=== PATIENT | female | born 1960 | race Caucasian/White ===

== ENCOUNTER 2023-02-19 09:43 | Outpatient (CLI) | payer BC, SELFPAY ==
[2023-02-19 13:51] LABS: Basophils Percent Auto 0.5 % (0.2-1.2); Eosinophils Absolute Auto 0.2 K/mm3 (0-0.3); Eosinophils Percent Auto 3.4 % (0-4.4); Hematocrit 45.9 % (37.0-47.0); Hemoglobin 14.5 g/dL (12.0-15.0); Immature Granulocyte Absolute 0.01 K/mm3 (0.00-0.031); Immature Granulocyte Percent A 0.2 % (0-0.5); Immature Platelet Fraction Pct 14.7 % (0.9-11.2); Lymphocytes Absolute Auto 1.84 K/mm3 (0.9-3.2); Lymphocytes Percent Auto 28.1 % (18.3-44.2); Mean Corpuscular HGB Conc 31.6 g/dl (32-36); Mean Corpuscular Hemoglobin 28.1 pg (26-34); Mean Platelet Volume 13.4 fl (7.4-10.4); Monocytes Absolute Auto 0.3 K/mm3 (0.1-0.6); Monocytes Percent Auto 5.2 % (2.6-8.5); Neutrophils Absolute Auto 4.1 K/mm3 (1.3-6.7); Neutrophils Percent Auto 62.6 % (45.5-73.1); Platelet Count Result 158 k/mm3 (150-375); Red Blood Count 5.16 M/mm3 (4.2-5.4); Red Cell Distribution Width 13.5 % (11.5-14.5); White Blood Count 6.6 K/mm3 (4.5-10.0)
[2023-02-19 13:54] LABS: Alanine Aminotransferase 27 U/L (6-35); Albumin Level 4.3 g/dL (3.5-5.1); Alkaline Phosphatase 79 U/L (38-126); Anion Gap 5 mmol/L (8-16); Aspartate Amino Transferase 51 U/L (14-36); Bilirubin,Total 0.5 mg/dL (0.2-1.3); Blood Urea Nitrogen 19 mg/dL (7-17); Calcium 8.7 mg/dL (8.4-10.2); Carbon Dioxide 31 mmol/L (22-30); Chloride 105 mmol/L (98-107); Cholesterol 273 mg/dL (0-200); Estimated Glomerular Filt Rate > 60; Glucose 92 mg/dL (65-110); HDL Direct 45 mg/dL; Potassium 4.4 mmol/L (3.4-5.0); Sodium 141 mmol/L (137-145); Triglycerides 141 mg/dL (<150)
[2023-02-19 14:06] LABS: LDL Cholesterol Direct 185 mg/dL
[2023-02-19 14:16] LABS: Vitamin D 25 Hydroxy 16.3 ng/mL
== END 2023-02-19 09:44 | disposition home or self-care (01) ==
LOC: ANHGOSHLAB 09:44
PROVIDERS: PCP Internal Medicine; Visit Provider Nurse Practitioner
DX: E55.9 Vitamin D deficiency, unspecified (principal); Z13.29 Encounter for screening for other suspected endocrine disorder; Z13.220 Encounter for screening for lipoid disorders
CPT/HCPCS: 36415; 80053; 80061; 82306; 85025; 85055

== ENCOUNTER → 2023-02-23 08:00 | Outpatient (CLI) | payer BC, SELFPAY ==
--- NOTE | ~2023-02-23 | CT_ITS ---
EXAMINATION: CT lung screening DATE: 02/23/2023 08:19 INDICATION: F17.200 - Nicotine dependence, unspecified, uncomplicated TECHNIQUE: Computed tomography (CT) of the chest was performed without intravenous contrast. Addition al 3D reconstructions utilizing coronal maximum intensity projection (MIP) were performed. Automated exposure control and iterative reconstruction technique were employed. The dose-length product was 10 2.73 mGy-cm. COMPARISON: None FINDINGS: Mild right apical pleural-parenchymal scarring. Mild scattered emphysema. Minimal basilar atelectasis and the right middle lobe. No suspicious pulmonary nodules, pneumonia, pulmonary edema or pleural ef fusion. Heart size is normal. No pericardial effusion. Thoracic aorta is normal in caliber. No pathol ogically enlarged thoracic lymphadenopathy. And mild to moderate thoracic and and severe lower cervic al spondylosis. IMPRESSION: 1. Lung-RADS category 1: Negative. Continue annual screening with noncontrast low-dose chest CT in 12 months. Reviewed, dictated and finalized at location B. IMPRESSION: 1. Lung-RADS category 1: Negative. Continue annual screening with noncontrast l ow-dose chest CT in 12 months.
== END ==
PROVIDERS: PCP Nurse Practitioner; Visit Provider Nurse Practitioner
DX: Z12.2 Encounter for screening for malignant neoplasm of respiratory organs (principal); F17.210 Nicotine dependence, cigarettes, uncomplicated; R91.8 Other nonspecific abnormal finding of lung field
CPT/HCPCS: 71271

== ENCOUNTER 2025-09-01 10:42 | Emergency (ER) | payer SELFPAY ==
--- OUTSIDE RECORDS SUMMARY | 2008-07-01 09:49 | XMS_ITS | Continuity of Care Document ---
Author Organization [facility] Address [address] [place] [address] [place] [address] Phone Care Team Providers Care Slot Floorperson Name Role Phone Chacon OD, Brigido Unavailable Unavailable Procedures Procedure Date Eye Exam, New Patient Refraction Advance Directives Directive Yes / No Effective Date File Name No Information Encounters Encounter Description Practice Location Reason(s) For Visit Diagnoses Date Provider Providers Copied on Encounter [facility], [address] [place] [address] [address], [place], [place], [id number], [place] tel:[phone] [facility] No Information 0-200 8 Chacon OD Brigido. [address] , [address], [place], [address], [place]. tel:[phone] Family History Family Member Type Diagnosis Age At Onset No Information Payers Payer name Insurance type Covered constitution party ID Authoriza tion(s) [place] [id number] Social History Type Description Quantity Date Captured Comments Sex Female Smoking Status No Information Chief Complaint And Reason For Visit No Information Reason For Referral Reason For Referral No Information History Of Present Illness Encounter Date Complaint History Of Prese nt Illness No Information Functional Status Date Functional Assessmen t No Information Instructions Date Instruction Additional Infor mation No Information Assessments Type Assessment Date No Information Patient Care Teams Name Effective Dates (start - stop) Status Members No Information
--- OUTSIDE RECORDS SUMMARY | 2008-07-01 09:49 | XMS_ITS | Continuity of Care Document ---
Author Organization [facility] Address [address] [place] [address] [place] [address] Phone Care Team Providers Care Customs Entry Writer Name Role Phone Chacon OD, Brigido Unavailable Unavailable Procedures Procedure Date Eye Exam, New Patient Refraction Advance Directives Directive Yes / No Effective Date File Name No Information Encounters Encounter Description Practice Location Reason(s) For Visit Diagnoses Date Provider Providers Copied on Encounter [facility], [address] [place] [address] [address], [place], [place], [id number], [place] tel:[phone] [facility] No Information 0-200 8 Chacon OD Brigido. [address] , [address], [place], [address], [place]. tel:[phone] Family History Family Member Type Diagnosis Age At Onset No Information Payers Payer name Insurance type Covered democrat ID Authoriza tion(s) [place] [id number] Social History Type Description Quantity Date Captured [...]
--- NOTE | ~2025-09-01 | CT_ITS ---
EXAMINATION: CT brain wo manuel, 09/01/2025 12:45 ONCOLOGY SOCIAL WORK HISTORY: dizziness COMPARISON: No comparisons available. Technique: Axial images obtained of the brain without contrast. One or more of the following dose reduction techniques were used: automated exposure control, adjustment of the mA and/or kV according to patient size, use of iterative reconstruction technique. Findings: No acute infarct or parenchymal hemorrhage. No abnormal mass or mass effect. No midline shift. No extra-axial fluid collections. No hydrocephalus. Mastoid air cells unremarkable. Sinuses and orbits unremarkable. No acute fracture. No significant facial or scalp soft tissue swelling evident. No radiopaque foreign body is seen. Impression: 1.No acute intracranial abnormality. Reviewed, dictated and finalized at location [facility]. [facility] WORK Impression: 1.No acute intracranial abnormality.
[2025-09-01 10:49] VITALS: BP 186/78; PULSE 71; RESP 17; TEMP 36.6; O2SAT 99
--- NOTE | 2025-09-01 11:14 | PC.NURSE ---
Pt states her sx have started to resolve. Reports feeling less dizziness and nauseous. Pt assisted to bathroom via w/c, able to ambulate with steady gait without assistance.
--- OUTSIDE RECORDS SUMMARY | 2025-09-01 11:16 | XMS_ITS | Clinical Summary ---
Author Organization [facility] Address [address] [place] [address] Care Team Providers Care Cake Stripper Name Role Phone Pato Godoy MD Primary Care Provider + Unknown, Provider Unavailable Unavailable Source Comments [facility],non-owned Affiliates and Associated Physician Practices is amultiple site organization consisting of ambulatory clinics and hospital sitesin [place], [place], [place] and [place]. This disclosure is being madepursuant to the Care Everywhere program and may not contain all information available regarding this patient. Last updated 18.[facility] Allergies No known active allergies Medications * Be aware that medications may not be up to date on this document. Alwaysverify current medications with the patient. No known medications Active Problems Patient Care Coordination No te Formatting of this note migh t be different from the original. Primary Care Provider: Pato Godoy MD [address] [address] No known active problems Social History Tobacco Use Types Packs/Day Years Used Date Smoking Tobacco: Every Day Cigarettes 0.3 47 Smokeless Tobacco: Never Alcohol Use Standard Drinks/Week Comments Yes 0 (1 standard drink = 0.6 oz pur e alcohol) occ Comments No Sex and Gender Information Value Date Recorded Sex Assigned at Not on file Legal Sex Female 5:53 PM [employer]ODUCTION [employer]OL [employer] Gender Identity Not on file Sexual Orientation Not on file Last Filed Vital Signs Vital Sign Reading Time Taken Comments Blood Pressure 144/50 11/08/2023 9:30 AM [employer]ODUCTION [employer]NER Pulse 66 11/08/2023 9:30 AM [employer]ODUCTION [employer]NER Temperature 36.7 C (98 F) 11/08/2023 9:30 AM [employer]NER Respiratory Rate 19 03/27/2019 11:46 AM CDT Oxygen Saturation 99% 09/29/2022 11:13 AM [employer] Inhaled Oxygen Concentration - - Weight 71.7 kg (158 lb) 11/08/2023 9:30 AM [employer] Height 162.6 cm (5' 4) 11/08/2023 9:30 AM [employer] Body Mass Index 27.12 11/08/2023 9:30 AM [employer] Plan of Treatment Health Maintenance Due Date Last Done Comments COLOGUARD (AGES 45-75) - COLON CA SCREENING 1961 COLON MONITORING 1961 COLONOSCOPY - COLON CA SCREENING 1961 CT COLONOGRAPHY - COLON CA SCREENING 1961 Colorectal Cancer Screening 1961 FIT - COLON CA SCREENING 1961 FLEX SIG - COLON CA SCREENING 1961 LIPID TESTING 1961 HIV SCREENING 1976 HEPATITIS C SCREENING 11/21/1979 DTAP/TDAP/TD VACCINES (1 - Tdap) 1980 PNEUMOCOCCAL VACCINE 50+ (1 of 2 - PCV) 1980 PAP SMEAR 1982 ZOSTER VACCINE (1 of 2) 2011 SCREENING FOR DIABETES 11/08/2023 03/27/2019 DEPRESSION SCREENING 10/22/2024 COVID-19 VACCINE ( - season) 2025 INFLUENZA VACCINE (#1) 2025 MAMMOGRAM 11/08/2025 11/08/2023, 12/0 06/2022, 09/23/2021, Additional history exists Respiratory Syncytial Virus (RSV) Vaccine Pt: or over 60 yrs (1 - 1-dose 75+ series) 2036 HEPATITIS B VACCINE Aged Out No longe r eligible based on patient's age to complete this topic HIB VACCINE Aged Out No longer eligi ble based on patient's age to complete this topic HPV VACCINE Aged Out No longer eligi ble based on patient's age to complete this topic MENINGOCOCCAL (Group B) VACCINE SHARED DECISION-MAKING Aged Out No longer eligible based on patient's age to complete this topic MENINGOCOCCAL GROUPS A/C/Y/W VACCINE Aged Out No longer eligible based on patient's age to complete this topic Procedures Procedure Name Priority Date/Time Associated Diagnosis Comments MAMMO BILAT SCREENING W SUNDEEP Routine 11/08/2023 8:53 AM [employer]ODUCTION CONTROL PLANNER Encounter for mammogram to establish baseline mammogram COMPREHENSIVE METABOLIC PANEL STAT 03/27/2019 11:10 AM CDT from Last 3 Months or Most Recently Relevant to Health Maintenance Results * MAMMO BILAT SCREENING W SUNDEEP (11/08/2023 8:53 AM PRODUCTION CONTROL PLANNER) Anatomical Region Laterality Modality Breast Bilateral Mammography 11/08/2023 11:1 6 AM [employer]ODUCTION [employer]OL PL[employer]NER Impressions 11/08/2023 11:17 AM [employer]ODUCTION CONTROL PL[employer]NER : There is no mammographic evidence of malignancy. OVERALL FINAL ASSESSMENT: BI-RADS Category 1: Negative. Annual screening mammography is recommended. > Interpreting Provider: Laura Gavin MD on 11/08/2023 11:17 AM Narrative 11/08/2023 11:17 AM [employer]ODUCTION CONTROL PLANNER EXAMINATION: BILATERAL DIGITAL SCREENING MAMMOGRAM AND BILATERAL BREAST TOMOSYNTHESIS HISTORY: Screening. COMPARISON: Serial examinations dating back to 2017. TECHNIQUE: BILATERAL digital breast tomosynthesis (DBT) and synthetic 2D digital mammogram images were obtained (bilateral craniocaudal and mediolateral oblique projections) including computer aided detection (CAD.) BREAST PARENCHYMAL COMPOSITION:Category C: The breasts are heterogeneously dense which may obscure small masses. MAMMOGRAM FINDINGS: There are no new suspicious masses, calcifications, or areas of architectural distortion in either breast, and there has been no significant interval change. us Suzie Acevedo MD MAMMO ORDERABLES Final Result * (ABNORMAL) COMPREHENSIVE METABOLIC PANEL (03/27/2019 11:10 AM CDT) Glucose 91 74 - 106 mg/dL 03/27/2019 11:34 AM CDT [facility] Sodium 142 136 - 145 mmol/L 03/27/2019 11:34 AM CDT [facility] Potassium 3.5 3.5 - 5.1 mmol/L 03/27/2019 11:34 AM CDT [facility] Chloride 110(H) 98 - 107 mmol/L 03/27/2019 11:34 AM CDT [facility] CO2 24 23 - 31 mmol/L 03/27/2019 11:34 AM CDT [facility] Calcium 7.9(L) 8.4 - 10.2 mg/dL 03/27/2019 11:34 AM CDT [facility] Anion Gap 8 8 - 16 mmol/L 03/27/2019 11:34 AM CDT [facility] BUN 13 9.8 - 20.1 mg/dL 03/27/2019 11:34 AM CDT [facility] Creatinine 0.56 0.55 - 1.02 mg/dL 03/27/2019 11:34 AM CDT [facility] Alkaline Phosphatase 78 40 - 150 U/L 03/27/2019 11:34 AM CDT [facility] ALT 19 13 - 61 U/L 03/27/2019 11:34 AM CDT [facility] AST 29 5 - 34 U/L 03/27/2019 11:34 AM CDT [facility] Protein Total 6.6 6.4 - 8.3 gm/dL 03/27/2019 11:34 AM CDT [facility] Albumin 3.7 3.5 - 5.2 gm/dL 03/27/2019 11:34 AM CDT [facility] Bilirubin Total 0.2 0.2 - 1.0 mg/dL 03/27/2019 11:34 AM CDT [facility] eGFR by MDRD >60 >60 mL/min/1.7 3m2 03/27/2019 11:34 AM CDT [facility] eGFR by MDRD >60 >60 mL/min/1.7 3m2 03/27/2019 11:34 AM CDT [facility] Blood BLOOD SPECIMEN / Unknown Venipuncture / Unknown 03/27/2019 11:10 AM CDT 03/27/2019 11:15 AM CDT Narrative [facility] - 03/27/2019 11:34 AM CDT Attention clinician: BUN Reference Range has changed. us Dylan Davila DO LAB - CHEMISTRY ORDERABLES F inal Result [facility] [address] [place] [address] from Last 3 Months or Most Recently Relevant to Health Maintenance Insurance SELF PAY NO INSURANCE Member Subscriber Plan / Payer (Ef fective for All Dates) Name:Rosanne Priyanka Member ID:Not on file Relation to Subscriber:Self Name:Rosanne Priyanka Subscriber ID:Not on file Payer ID:Not on file Group ID:Not on file Type:Self Pay Address: [place], [place] Care Teams Cake Stripper Relationship Specialty Start Date End Date Pato Godoy MD [address] [place] [address] PCP - General Family Medicine 11/19/17 Unknown, Provider [address] [address] 11/19/17
--- OUTSIDE RECORDS SUMMARY | 2025-09-01 11:16 | XMS_ITS | Clinical Summary ---
Author Organization [facility] young [place] Address [address] [place] [address] Phone Care Team Providers Care Senior National Account Manager Name Role Phone Pato Godoy MD Primary Care Provider +1- [phone] Allergies No known active allergies Medications multivitamin (DAILY-ASHLY) Oral tablet Take 1 Tab by mouth daily. Active omeprazole (PriLOSEC) 20 mg Capsule, Delayed Release(E.C.) Take 20 mg by mouth daily. Active letrozole (FEMARA) 2.5 mg Tablet Take 1 Tablet (2.5 mg) by mouth daily. 90 Tablet 3 10/23/2017 Active indomethacin (INDOCIN) 50 mg capsule Take 50 mg by mouth 3 times daily. Active omega-3 fatty acids-fish oil 300-1,000 mg Capsule Take by mouth daily. Active cyanocobalamin 1,000 mcg Tablet Take 1,000 mcg by mouth daily. Active Active Problems Patient Care Coordination No te Formatting of this note migh t be different from the original. Primary Care: Pato Godoy MD Referring Provider: Geni Segura MD [address] [facility] [address] [place] [address] Other: Dr Suzie Acevedo Problem Noted Date Diagnosed Date Osteopenia of multiple sites 07/18/2017 Breast cancer 11/22/2016 Overview (03/12/2017): BREAST CANCER TREATMENT SUMMARY AND SURVIVORSHIP PLAN Patient name: Priyanka Lay Patient Patient : 1960 CARE TEAM Medical oncologist: Dr Charmaine Madden Surgeon: Dr Suzie Acevedo Radiation oncologist[facility] Primary care physician: Dr Pato Kamara DISPATCHER SERVICE OR WORK: Dr Geni Segura TREATMENT SUMMARY Diagnosis date: 11/17/2016 Cancer type/location/histology subtype: 11/13/16: A screening mammogram showed a new spiculated mass is seen in the posterior lower inner right breast. Also, a mass was suggested in the posterior upper, slightly inner left breast. 11/15/16: A bilateral diagnostic mammogram and ultrasound (US) were performed revealing a simple appearing cyst within the left breast at the 10:00 position and no other concerning abnormalities to note. The right breast imaging revealed an irregular hypoechoic mass with angulated margins at the 3:00 position measuring 6 mm x 5 mm x 6 mm. 11/17/16: An US guided biopsy was performed on the right breast revealing an invasive ductal carcinoma (IDC) with a [place] Score of 5 (low grade) ER: positive CO: positive [id number]: negative Ki-67: 16.3% low grade cancers tend to be less aggressive than high grade cancers 11/28/16: A breast MRI showed no additional abnormalities Surgery: [x] Yes [] No Surgery date: 12/07/2016 Surgical procedures/location/findings: A right breast needle localized lumpectomy was performed by Dr Suzie Acevedo revealing: - Invasive ductal carcinoma with the following characteristics: 1. Size: 0.7 x 0.5 x 0.5 cm. 2. [place] score: 5, low-grade. 3. Lymphovascular invasion: Not identified. 4. Surgical margins: Negative for tumor. Lymph nodes removed: [x] Yes [] No - 2 lymph nodes with no evidence of metastatic carcinoma (0/2). TNM FINAL STAGING: [id number] T1 (includes T1a, T1b, and T1c): Tumor is 2 cm (3/4 of an inch) or less across. Breast cancer is staged using the [place] Joint Committee on Cancer (AJCC) TNM system, which is based on: 1) The size of the breast tumor (T) and if it has grown into nearby areas 2) Whether the cancer has reached nearby lymph nodes (N) 3) Whether the cancer has metastasized (spread to other parts of the body) (M) Oncotype results if performed: Yes [x] No[] Oncotype Score = 19 The cancer has a low risk of recurrence. The benefit of chemotherapy is likely to be small and will not outweigh the risks of side effects. The Oncotype DX test is both a prognostic test, since it provides more information about how likely (or unlikely) the breast cancer is to come back, and a predictive test, since it predicts the likelihood of benefit from chemotherapy or radiation therapy treatment. Studies have shown that Oncotype DX is useful for both purposes. Radiation: [x] Yes [] No Body area treated: whole right breast radiation between 01/08/2017 and 02/22/2017. Need for ongoing (adjuvant) treatment for cancer: Yes [x] No[] Additional treatment name: 2.5mg Letrozole (Femera)- take one tablet by mouth daily Plan duration: 5 years Possible side effects with Letrozole (Femera): Arthralgias [x] Hot flashes/night sweats [x] Increased bone loss [x] vaginal dryness [x] slight increased risk of DVT/Blood clot [] Slight increased risk of uterine cancer [] increased cholesterol [x] Bone health- Vitamin D 1000 units a day, calcium rich diet (milk, cheese, yogurt, leafy greens), if lactose intolerant, recommend Calcium 600mg daily, weight bearing exercises such as walking or aerobics encouraged. Bone density exams every two years. Magnesium for hot flashes- 500mg twice a day, reduce caffeine intake, exercise regularly, cotton clothing and bed linens, sleep with fan in room Vaginal dryness- can try over the counter products such as [place] or Replens. Daily application of coconut oil or olive oil. Try and avoid estrogen based vaginal creams such as Estrace. For lack of libido- physical exercise recommended. Can refer to [facility] program for counseling and possible acupuncture or [facility] for Pete Rizo Touch laser treatment SCHEDULE OF CLINIC VISITS, CANCER SURVEILLANCE, AND OTHER RECOMMENDED RELATED TESTS MEDICAL ONCOLOGIST -Every 3-4 mos for the first 3 years -Every 6-12 mos years 4 and 5 -Then yearly. *Physical exam/lab work every 3-6 months the first 3 years and then every 6 months year 4/5 and then yearly. Mammogram yearly. A baseline bone density study should be performed on all postmenopausal women prior to starting Arimidex/Femara/or Aromasin. It should be repeated every 1-to 2 years as directed by your physician. Other testing as indicated. RADIATION ONCOLOGIST -4-6 weeks after treatment -Every 3-6 mos for the first 3 years -Every 6-12 mos for year 4 and 5. *Physical exam and other tests as indicated on each visit SURGEON -Every 6 mos for the first year and then yearly PRIMARY CARE PHYSICIAN -Continue your yearly visit *Physical exam and other tests as indicated on each visit CT SCAN TECHNOLOGIST -Continue your yearly visit. *Physical exam and other tests (Pap test) as indicated on each visit. Possible late and/or prison affects that someone with this type of cancer and treatment may experience: [] Neuropathy [x] Lymphedema [x] Fatigue [x] Osteoporosis [x] Menopausal symptoms [] Lung disease [x] Breast pain [x] Sexual dysfunction [] Heart disease [] Leukemia Cancer survivors may experience issues with the areas listed below. If you have any concerns in these or other areas please speak with your doctors or nurses to find out how you can get help with them. [] Emotional and mental health [] Physical functioning [] Memory or concentration loss [] Fatigue [] Insurance issues [] Parenting [] Spiritual issues [] Weight changes [] School/work [] Fertility [] Stopping smoking [] Financial advice or assistance [] Sexual functioning [] Other A number of lifestyle/behaviors can affect one's ongoing health, including the risk for the cancer coming back or developing another cancer. Discuss these recommendations with your doctor and nurses. [] Tobacco use/cessation [] Alcohol use [] Weight management (loss/gain) [] Diet [] Calcium and vitamin D [] Regular daily weight bearing exercise [] Sunscreen use [] Vaccines [] Lung cancer screening [] Routine dental care [] Breast cancer screening [] Breast self exam [] Well woman exam [] Colonoscopy [] Monitoring of blood pressure, cholesterol, and blood glucose CALL YOUR DOCTOR RECOMMENDATIONS Call for any breast changes, new lumps or areas of concern, swelling to arm where lymph nodes were removed, new pain that persists despite OTC medications, or any problems with your endocrine therapy. PLAN Lifestyle modifications could have a modest impact on risk reduction as well. Recommend a healthy diet including low fat, high fiber foods, low sodium and low cholesterol foods. Mediterranean diet and anti-inflammatory diet recommended and info provided. Recommend an exercise regimen of approximately 5-6 days a week and maintaining healthy weight. Goal is to achieve 150 minutes of exercise per week. We spent time discussing that those changes could result in weight loss which is preventive and also good for overall health ADDITIONAL RESOURCES Patients may have many questions and concerns after their cancer treatment ends. A list of local resources as provided below to assist you. [facility] [employer] [place]: [place] Cancer Society (ACS): www.acs.org National Cancer [place] (NCI): www.cancer.gov [place] Society of clinical oncology (ASCO): www.cancer.net Komen: www.komen.org Livestrong: [employer] Radiation therapy: www.rtanswers.org Patient signature: Priyanka Lay MNeymar/SCOOTER/RN signature: Cherie Eldridge RN BSN Date delivered on: 03/12/2017 Resolved Problems Problem Noted Date Diagnosed Date Resolved Date Abnormal mammogram of both breasts 11/14/2016 11/22/2016 Visit for screening mammogram 11/13/2016 12/18/2016 Diffuse cystic mastopathy 02/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 ADH 10/19/2009 07/18/2017 Overview (02/12/2012): 09/14/09 RIGHT bxs - cousin by marriage of Kartik Lay 09/30/09 RIGHT bxs Assessment & Plan (01/10/2010 1:32 PM CDT): IOV First mammogram was abnormal; atypia Irish 1.9% and 16.7% KAREN Discussed TMX JanuaryO Wants to lose weight first ROV 1 year Family History Medical History Relation Name Comments Healthy Brother Heart Disease Father at 70yr o f [place] Healthy Mother alive age 72y Healthy Sister x 2 Relation Name Status Comments Brother Father Mother Sister x 2 Social History Tobacco Use Types Packs/Day Years Used Date Smoking Tobacco: Former Cigarettes 0.3 30 0 10/22/1986 - 10/22/2016 Smokeless Tobacco: Never Tobacco Cessation:Counseling Given: No Alcohol Use Standard Drinks/Week Comments Yes 0 (1 standard drink = 0.6 oz pur e alcohol) moderate Comments No Sex and Gender Information Value Date Recorded Sex Assigned at Not on file Legal Sex Female 5:48 AM PROJECT ESTIMATOR Gender Identity Not on file Sexual Orientation Not on file 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 Not on file Not on file Not on file Last Filed Vital Signs Vital Sign Reading Time Taken Comments Blood Pressure 132/60 09/15/2019 2:00 PM PROJECT ESTIMATOR Pulse 86 10/30/2017 6:00 PM PROJECT ESTIMATOR Temperature 36.6 C (97.9 F) 10/30/2017 2:57 PM PROJECT ESTIMATOR Respiratory Rate 16 10/30/2017 5:08 PM PROJECT ESTIMATOR Oxygen Saturation 98% 10/30/2017 6:00 PM PROJECT ESTIMATOR Inhaled Oxygen Concentration - - Weight 73.3 kg (161 lb 9.6 oz) 09/15/2019 2:00 P M PROJECT ESTIMATOR Height 162.6 cm (5' 4) 09/15/2019 2:00 PM PROJECT ESTIMATOR Body Mass Index 27.74 09/15/2019 2:00 PM PROJECT ESTIMATOR Plan of Treatment Health Maintenance Due Date Last Done Comments DTAP/TDAP/TD VACCINES (1 - Tdap) 1980 COLORECTAL SCREENING 2006 Colorectal Cancer Screening 2006 FIT-DNA Q 3 years 2006 FIT/FOBT Q 1 year 2006 Flex Sig/CT Colonography Q 5 years 2006 ZOSTER VACCINE (1 of 2) 2011 BREAST CANCER SCREENING 09/14/2021 09/14/20 20, 09/15/2019, 09/09/2018, Additional history exists INFLUENZA VACCINE (#1) 2025 RSV VACCINE (60+ or ) (1 - 1-dose 75+ series) 2036 Medical Devices Implanted Type Area Juice Scaleman Device Identifier Shelf Expiration Date Model / Serial / Lot Hemostatic Surgicel 4x8in 1950 - [id number] Implanted:Qty: 1 on 12/07/2016 by Suzie Acevedo MD at [facility] Hemostatic Right: Axilla [employer]- [employer] 04/20/[birth year]211950 [id number] Hemostatic Surgicel 4x8in 1950 - [id number] Implanted:Qty: 1 on 12/07/2016 by Suzie Acevedo MD at [facility] [place] Hemostatic Right: Breast [employer] 04/20/[birth year]211950 [id number] Procedures Procedure Name Priority Date/Time Associated Diagnosis Comments MAMMO 3D SUNDEEP DIAGNOSTIC BILAT W OR WO CAD Routine 09/15/2019 1:35 PM PROJECT ESTIMATOR Malignant neoplasm of upper-outer quadrant of right breast in female, estrogen receptor positive (CMS/HCC) from Last 3 Months or Most Recently Relevant to Health Maintenance Results * MAMMO DIAG BILAT 3D SUNDEEP W OR WO CAD (09/15/2019 1:35 PM PROJECT ESTIMATOR) Anatomical Region Laterality Modality Breast Bilateral Mammography 09/15/2019 1:37 PM PROJECT ESTIMATOR Impressions 09/16/2019 7:54 AM PROJECT ESTIMATOR IMPRESSION: No evidence of malignancy. RECOMMENDATIONS: Bilateral annual routine mammogram. OVERALL FINAL ASSESSMENT: BI-RADS CATEGORY 2: Benign findings. DICTATION LOCATION: [facility] 09/16/2019 7:54 AM PROJECT ESTIMATOR MAMMOGRAPHY DIGITAL DIAGNOSTIC BILATERAL 3-D TOMOGRAPHY WITH CAD 09/15/2019. HISTORY: Right breast cancer and right lumpectomy. Annual checkup. TECHNIQUE: Low-dose full-field digital tomosynthesis of bilateral breasts was performed with 2-D and 3-D acquisitions. Computer aided diagnosis was also applied. COMPARISON: 09/09/2018 and 09/03/2017. FINDINGS: There are scattered fibroglandular tissues bilaterally. The postsurgical changes and the biopsy clip in the right breast are again seen. No new mass, malignant calcification or architectural distortion is identified. CAD was used. Procedure Note Yeny Torres MD - 09/16/2019 MAMMOGRAPHY DIGITAL DIAGNOSTIC BILATERAL 3-D TOMOGRAPHY WITH CAD 09/15/2019. HISTORY: Right breast cancer and right lumpectomy. Annual checkup. TECHNIQUE: Low-dose full-field digital tomosynthesis of bilateral breasts was performed with 2-D and 3-D acquisitions. Computer aided diagnosis was also applied. COMPARISON: 09/09/2018 and 09/03/2017. FINDINGS: There are scattered fibroglandular tissues bilaterally. The postsurgical changes and the biopsy clip in the right breast are again seen. No new mass, malignant calcification or architectural distortion is identified. CAD was used. IMPRESSION: No evidence of malignancy. RECOMMENDATIONS: Bilateral annual routine mammogram. OVERALL FINAL ASSESSMENT: BI-RADS CATEGORY 2: Benign findings. DICTATION LOCATION: [facility] [place] [facility] Suzie Acevedo MD MAMMO ORDERABLES Final Resul t from Last 3 Months or Most Recently Relevant to Health Maintenance Insurance OPTIONS PPO [phone] Advance Directives For more information, please contact: [phone] * Full Code (Latest Code Status on File) Date Activated Date Inactivated Comments 12/07/2016 8:28 AM 12/07/2016 4:32 PM * Full Code Date Activated Date Inactivated Comments 12/07/2016 8:07 AM 12/07/2016 8:28 AM Care Teams Senior National Account Manager Relationship Specialty Start Date End Date Pato Godoy MD PCP - General Family Practice 02/16/14
--- OUTSIDE RECORDS SUMMARY | 2025-09-01 11:16 | XMS_ITS | Encounter Summary ---
Author Organization [facility] Address [address] [place] [address] Care Team Providers Care Keyboard Specialist Name Role Phone Pato Godoy MD Primary Care Provider +1- [phone] Encounter Details Date Type Department Care Team (Late st Contact Info) Description 12/25/2016 Chart Note [facility] Rad[facility] Therapy [address] [place] [id number] [place] [address] [place] [address] Social History Tobacco Use Types Packs/Day Years Used Date Smoking Tobacco: Former Cigarettes 0.3 30 0 10/22/1986 - 10/22/2016 Alcohol Use Standard Drinks/Week Comments Yes 0 (1 standard drink = 0.6 oz pur e alcohol) moderate Comments No Sex and Gender Information Value Date Recorded Sex Assigned at Not on file Legal Sex Female 5:48 AM HEALTH AIDE Gender Identity Not on file Sexual Orientation Not on file 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
--- OUTSIDE RECORDS SUMMARY | 2025-09-01 12:20 | XMS_ITS | Clinical Summary ---
Author Organization [employer] Giant[facility] young [place] Address [address] [place] [address] Phone Care Team Providers Care Dial Maker Name Role Phone Pato Godoy MD Primary Care Provider +1- [phone] Allergies No known active allergies Medications multivitamin [...] Godoy MD Referring Provider: Geni Segura MD [address] [facility] [address] [place] [address] Other: Dr Suzie Acevedo Problem Noted Date Diagnosed Date Osteopenia of multiple sites 07/18/2017 Breast cancer 11/22/2016 Overview (03/12/2017): BREAST CANCER TREATMENT SUMMARY AND SURVIVORSHIP PLAN Patient name: Priyanka Lay Patient Patient : 1960 CARE TEAM Medical oncologist: Dr Charmaine Madden Surgeon: Dr Suzie Acevedo Radiation oncologist[facility] Primary care physician: Dr Pato Kamara PIPE STRAIGHTENER: Dr Geni Segura TREATMENT SUMMARY Diagnosis date: [...] an invasive ductal carcinoma (IDC) with a [place] Score of 5 (low grade) ER: positive AL: positive Syb4Hta: negative Ki-67: 16.3% low grade cancers tend to be less aggressive than high grade cancers 11/28/16: A breast MRI showed no additional abnormalities Surgery: [x] Yes [] No Surgery date: 12/07/2016 Surgical procedures/location/findings: A right breast needle localized lumpectomy was performed by Dr Suzie Acevedo revealing: - Invasive ductal carcinoma with the following characteristics: 1. Size: 0.7 x 0.5 x 0.5 cm. 2. [place] score: 5, low-grade. 3. Lymphovascular invasion: Not identified. 4. Surgical margins: Negative for tumor. Lymph nodes removed: [x] Yes [] No - 2 lymph nodes with no evidence of metastatic carcinoma (0/2). TNM FINAL STAGING: [id number] T1 (includes T1a, T1b, and T1c): Tumor is 2 cm (3/4 of an inch) or less across. Breast cancer is staged using the [place] Joint Committee on Cancer (AJCC) TNM system, [...] possible acupuncture or [facility] for Pete Rizo Touch laser treatment SCHEDULE [...] other tests as indicated on each visit PSYCHOLOGIST ENGINEERING -Continue your yearly visit. *Physical exam and other tests (Pap test) as indicated on each visit. Possible late and/or mcc affects that someone with this type of [...] resources as provided below to assist you. 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 on file Not on file Not on file Last Filed Vital Signs Vital Sign Reading Time Taken Comments Blood Pressure 132/60 09/15/2019 2:00 PM VICE PRESIDENT OF COMMUNICATIONS Pulse 86 10/30/2017 6:00 PM VICE PRESIDENT OF COMMUNICATIONS Temperature 36.6 C (97.9 F) 10/30/2017 2:57 PM VICE PRESIDENT OF COMMUNICATIONS Respiratory Rate 16 10/30/2017 5:08 PM VICE PRESIDENT OF COMMUNICATIONS Oxygen Saturation 98% 10/30/2017 6:00 PM VICE PRESIDENT OF COMMUNICATIONS Inhaled Oxygen Concentration - - Weight 73.3 kg (161 lb 9.6 oz) 09/15/2019 2:00 P M VICE PRESIDENT OF COMMUNICATIONS Height 162.6 cm (5' 4) 09/15/2019 2:00 PM VICE PRESIDENT OF COMMUNICATIONS Body Mass Index 27.74 09/15/2019 2:00 PM VICE PRESIDENT OF COMMUNICATIONS Plan of Treatment Health Maintenance Due Date [...] series) 2036 Medical Devices Implanted Type Area Tie Carrier Device Identifier Shelf Expiration Date Model / Serial / Lot Hemostatic Surgicel 4x8in 1950 - [id number] Implanted:Qty: 1 on 12/07/2016 by Suzie Acevedo MD at [facility] [place] Hemostatic Right: Axilla [employer] 04/20/[birth year]211950 [id number] Hemostatic Surgicel 4x8in 1950 - [id number] Implanted:Qty: 1 on 12/07/2016 by Suzie Acevedo MD at [facility] [place] Hemostatic Right: Breast [employer] 04/20/[birth year]211950 [id number] Procedures Procedure Name Priority Date/Time Associated Diagnosis Comments MAMMO 3D SUNDEEP DIAGNOSTIC BILAT W OR WO CAD Routine 09/15/2019 1:35 PM VICE PRESIDENT OF COMMUNICATIONS Malignant neoplasm of upper-outer quadrant of right breast in female, estrogen receptor positive (CMS/HCC) from Last 3 Months or Most Recently Relevant to Health Maintenance Results * MAMMO DIAG BILAT 3D SUNDEEP W OR WO CAD (09/15/2019 1:35 PM VICE PRESIDENT OF COMMUNICATIONS) Anatomical Region Laterality Modality Breast Bilateral Mammography 09/15/2019 1:37 PM VICE PRESIDENT OF COMMUNICATIONS Impressions 09/16/2019 7:54 AM VICE PRESIDENT OF COMMUNICATIONS IMPRESSION: No evidence of malignancy. RECOMMENDATIONS: Bilateral annual routine mammogram. OVERALL FINAL ASSESSMENT: BI-RADS CATEGORY 2: Benign findings. DICTATION LOCATION: [facility] 09/16/2019 7:54 AM VICE PRESIDENT OF COMMUNICATIONS MAMMOGRAPHY DIGITAL DIAGNOSTIC BILATERAL 3-D TOMOGRAPHY WITH [...] CATEGORY 2: Benign findings. DICTATION LOCATION: [facility] [place] [facility] Suzie Acevedo MD MAMMO ORDERABLES Final Resul t from Last 3 Months or Most Recently Relevant to Health Maintenance Insurance OPTIONS PPO [phone] Advance Directives For more information, please contact: [phone] * Full Code (Latest Code Status on File) Date Activated Date Inactivated Comments 12/07/2016 8:28 AM 12/07/2016 4:32 PM * Full Code Date Activated Date Inactivated Comments 12/07/2016 8:07 AM 12/07/2016 8:28 AM Care Teams Dial Maker Relationship Specialty Start Date End Date Pato Godoy MD PCP - General Family Practice 02/16/14
--- OUTSIDE RECORDS SUMMARY | 2025-09-01 12:20 | XMS_ITS | Clinical Summary ---
Author Organization [email or web address] Address [address] [place] [address] Care Team Providers Care Assembler For Puller Over Hand Name Role Phone Pato Godoy MD Primary Care Provider + Unknown, Provider Unavailable Unavailable Source Comments [email or web address],non-owned Affiliates and Associated Physician Practices is amultiple site organization consisting of ambulatory clinics and hospital sitesin [place], [place], [place] and [place]. This disclosure is being madepursuant to the Care Everywhere program and may not contain all information available regarding this patient. Last updated 18.[email or web address] Allergies No known active allergies Medications * Be aware that medications may not be up to date on this document. Alwaysverify current medications with the patient. No known medications Active Problems Patient Care Coordination No te Formatting of this note migh t be different from the original. Primary Care Provider: Pato Godoy MD [address] [address] No known active problems Social History Tobacco Use Types Packs/Day Years Used Date Smoking Tobacco: Every Day Cigarettes 0.3 47 Smokeless Tobacco: Never Alcohol Use Standard Drinks/Week Comments Yes 0 (1 standard drink = 0.6 oz pur e alcohol) occ Comments No Sex and Gender Information Value Date Recorded Sex Assigned at Not on file Legal Sex Female 5:53 PM FAMILY SERVICES SPECIALIST Gender Identity Not on file Sexual Orientation Not on file Last Filed Vital Signs Vital Sign Reading Time Taken Comments Blood Pressure 144/50 11/08/2023 9:30 AM FAMILY SERVICES SPECIALIST Pulse 66 11/08/2023 9:30 AM FAMILY SERVICES SPECIALIST Temperature 36.7 C (98 F) 11/08/2023 9:30 AM FAMILY SERVICES SPECIALIST Respiratory Rate 19 03/27/2019 11:46 AM CDT Oxygen Saturation 99% 09/29/2022 11:13 AM FAMILY SERVICES SPECIALIST Inhaled Oxygen Concentration - - Weight 71.7 kg (158 lb) 11/08/2023 9:30 AM FAMILY SERVICES SPECIALIST Height 162.6 cm (5' 4) 11/08/2023 9:30 AM FAMILY SERVICES SPECIALIST Body Mass Index 27.12 11/08/2023 9:30 AM FAMILY SERVICES SPECIALIST Plan of Treatment Health Maintenance Due Date [...] SCREENING W SUNDEEP Routine 11/08/2023 8:53 AM FAMILY SERVICES SPECIALIST Encounter for mammogram to establish baseline mammogram COMPREHENSIVE METABOLIC PANEL STAT 03/27/2019 11:10 AM CDT from Last 3 Months or Most Recently Relevant to Health Maintenance Results * MAMMO BILAT SCREENING W SUNDEEP (11/08/2023 8:53 AM FAMILY SERVICES SPECIALIST) Anatomical Region Laterality Modality Breast Bilateral Mammography 11/08/2023 11:1 6 AM FAMILY SERVICES SPECIALIST Impressions 11/08/2023 11:17 AM FAMILY SERVICES SPECIALIST : There is no mammographic evidence of malignancy. OVERALL FINAL ASSESSMENT: BI-RADS Category 1: Negative. Annual screening mammography is recommended. > Interpreting Provider: Laura Gavin MD on 11/08/2023 11:17 AM Narrative 11/08/2023 11:17 AM FAMILY SERVICES SPECIALIST EXAMINATION: BILATERAL DIGITAL SCREENING MAMMOGRAM AND BILATERAL [...] CHEMISTRY ORDERABLES F inal Result [facility] [address] [place] [address] from Last 3 Months or Most Recently Relevant to Health Maintenance Insurance SELF PAY NO INSURANCE Member Subscriber Plan / Payer (Ef fective for All Dates) Name:Rosanne Priyanka Member ID:Not on file Relation to Subscriber:Self Name:Rosanne Priyanka Subscriber ID:Not on file Payer ID:Not on file Group ID:Not on file Type:Self Pay Address: [place], [place] Care Teams Assembler For Puller Over Hand Relationship Specialty Start Date End Date Pato Godoy MD [address] [place] [id number] PCP - General Family Medicine 11/19/17 Unknown, Provider [address] [address] 11/19/17
--- OUTSIDE RECORDS SUMMARY | 2025-09-01 12:20 | XMS_ITS | Encounter Summary ---
Author Organization [facility] Address [address] [place] [address] Care Team Providers Care Circuit Manager Name Role Phone Pato Godoy MD Primary Care Provider [phone] Encounter Details Date Type Department Care Team (Late st Contact Info) Description 12/25/2016 Chart Note [facility] Rad[facility] [address] [place] [phone] [place] [address] [place] [address] Social History Tobacco Use Types Packs/Day Years Used Date Smoking Tobacco: Former Cigarettes 0.3 30 0 10/22/1986 - 10/22/2016 Alcohol Use Standard Drinks/Week Comments Yes 0 (1 standard drink = 0.6 oz pur e alcohol) moderate Comments No Sex and Gender Information Value Date Recorded Sex Assigned at Not on file Legal Sex Female 5:48 AM RUBY ON RAILS ENGINEER Gender Identity Not on file Sexual Orientation Not on file 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
--- NOTE | 2025-09-01 12:26 | ED.GENADULT ---
HPI - General Adult General Chief complaint: Dizziness Stated complaint: dizzy, feel like pass out Time Seen by Provider: 09/01/25 11:55 History of Present Illness HPI narrative: 64-year-old female present to the emergency department for evaluation for onset of vertigo symptoms. Patient was at the infusion center with her friend that is getting chemotherapy and patient had onset dizziness. Patient states she is also having worsening anxiety. Patient does have history of both anxiety and vertigo. Patient does not take medications for these as she states medications also give her anxiety. Patient states that her symptoms felt like she was spinning and she was also concerned she was going to pass out. Patient did go rest in the waiting or per bed but ultimately called her boyfriend because symptoms were improving but not resolving. At time of evaluation patient states that she does still have some dizziness and patient is anxious. Patient denies any chest pain or shortness of breath. Related Data Allergies Allergy/AdvReac Type Severity Reaction Status Date / Time No Known Allergies Allergy Verified 09/01/25 10:43 Review of Systems Review of Systems: All systems reviewed & are unremarkable except as noted in HPI and below PMFSH Past Medical History Medical History Anxiety and depression Seasonal allergies History of breast cancer History of vaginal delivery Acid reflux Surgical History Surgical History History of myomectomy History of total hysterectomy History of lumpectomy of right breast History of appendectomy History of section Family History Family History Father Diabetes mellitus Hypertension Mother Family history of cardiovascular disease, Onset Age: 70 Cerebrovascular accident Other Family history of hypercholesterolemia Social History Social History Years smoked: 45 Tobacco type: cigarettes Alcohol intake: current Alcohol use details: Beer Lack of Transportation: No Lack of Food: Never True Current Housing: I Have Housing Concerned About Future Housing: No Difficulty Paying Gas/Electric Bills: No Difficulty Paying for Meds: No Currently Unemployed: No Education: High School Diploma/GED Difficulty w/ Childcare or Family Care: No Exam Narrative: APPEARANCE: Well appearing, no pain, no distress, well-nourished. HEAD: normocephalic, atraumatic. EYES: PERRLA/EOMI, conjunctivae clear. NOSE: Normal no drainage EARS:TMS clear with good light reflex. THROAT: Pharynx clear, no exudate. NECK: Supple. No adenopathy, no masses. RESPIRATORY: Airway patent, respirations nonlabored. Clear to auscultation bilaterally, no rales, rhonchi, wheezing. CARDIOVASCULAR: Regular rate and rhythm without murmurs rubs or gallops. ABDOMINAL: Soft, nontender, nondistended, normal bowel sounds MUSCULOSKELETAL: Moves all extremities. Strength/ROM intact, No edema, No calf tenderness. NEURO: Alert. Cranial nerves II through XII intact. Good gait. Good coordination SKIN: Warm, dry. Normal Color PSYCHIATRIC: Anxious affect Course Vital Signs Vital signs: Vital Signs Temperature 97.8 F 09/01/25 10:49 Pulse Rate 71 09/01/25 10:49 Respiratory Rate 17 09/01/25 10:49 Blood Pressure 186/78 H 09/01/25 10:49 Pulse Oximetry 99 09/01/25 10:49 Oxygen Delivery Room Air 09/01/25 10:49 Temperature 97.8 F 09/01/25 10:49 Pulse Rate 90 09/01/25 14:34 Respiratory Rate 18 09/01/25 14:34 Blood Pressure 144/60 H 09/01/25 14:34 Pulse Oximetry 95 09/01/25 14:34 Oxygen Delivery Room Air 09/01/25 10:49 Medical Decision Making [facility] Narrative Medical decision making narrative: 64-year-old female presents to the emergency department for evaluation for anxiety and vertigo symptoms. Patient was initially reluctant to take anything for anxiety or for her vertigo symptoms but patient was willing to take p.o. Ativan and p.o. meclizine. Patient was treated with 1 mg p.o. Ativan and 25 mg of p.o. meclizine. Patient had a negative head CT. Patient was normal sinus rhythm. On re-evaluation patient states she does feel significantly improved. Patient did states that she was having some sinus pressure with this. Patient did have some mild effusion behind the left TM with no significant evidence of infection. Patient was being provided meclizine for symptom control for home. Patient is also advised to take a mild decongestants such as Zyrtec to help with sinus congestion. All questions concerns were addressed. Patient was well-appearing at time of discharge. Differential Diagnosis Differential Diagnosis: AFib, tachycardia, subdural hematoma, subarachnoid hemorrhage, otitis media, sinusitis, allergies, vertigo, anxiety, vasovagal Vital Signs Vital Signs: Vital Signs Temperature 97.8 F 09/01/25 10:49 Pulse Rate 71 09/01/25 10:49 Respiratory Rate 17 09/01/25 10:49 Blood Pressure 186/78 H 09/01/25 10:49 Pulse Oximetry 99 09/01/25 10:49 Oxygen Delivery Room Air 09/01/25 10:49 Temperature 97.8 F 09/01/25 10:49 Pulse Rate 90 09/01/25 14:34 Respiratory Rate 18 09/01/25 14:34 Blood Pressure 144/60 H 09/01/25 14:34 Pulse Oximetry 95 09/01/25 14:34 Oxygen Delivery Room Air 09/01/25 10:49 Lab Data Lab results reviewed: Yes I reviewed the patient's lab results. Imaging Data Radiologist's impression: Impressions Head CT 09/01/25 12:54 Impression: 1.No acute intracranial abnormality. Discharge Plan Discharge Clinical Impression: Vertigo, Ear congestion Patient Disposition: Home Condition: Stable Instructions: Antibiotic Form, Vertigo (ED), Anxiety (ED) Additional Instructions: Have close follow-up with your primary care physician to discuss medications for anxiety. I do recommend taking meclizine as directed for vertigo control. I do recommend trying a daily decongestant such as Zyrtec for the next few days to help with sinus congestion. Have close follow-up with your primary care physician. If you have any worsening symptoms please call or return to the emergency department. Patient Language: Slovak Prescriptions: New meclizine 25 mg tablet 25 mg PO BID PRN (Reason: dizziness) 7 Days Qty: 14 0RF No Action clobetasol 0.05 % ointment 1 applic topical QHS Qty: 30 1RF Rx Instructions: apply pea size amount nightly x 8-12 weeks and then space out to 2-3 times weekly. Follow-up/Referrals: Grisel Cobos, CERTIFIED SUBSTANCE ABUSE COUNSELOR [Primary Care Provider, Internal Medicine]
[2025-09-01] MEDS: MECLIZINE HCL 25 MG TABLET PO (12:58)
[2025-09-01] MEDS: LORazepam (*CRX) 1 MG TABLET PO (12:58)
[2025-09-01 12:59] VITALS: BP 151/53; PULSE 71; RESP 14; O2SAT 97
[2025-09-01 14:27] VITALS: BP 144/59; PULSE 79; RESP 17; O2SAT 96
[2025-09-01 14:34] VITALS: BP 144/60; PULSE 90; RESP 18; O2SAT 95
== END 2025-09-01 14:36 | disposition home or self-care (01) ==
PROVIDERS: Emergency Provider Emergency Medicine; PCP Nurse Practitioner
DX: R42 Dizziness and giddiness (principal); H93.8X2 Other specified disorders of left ear; K21.9 Gastro-esophageal reflux disease without esophagitis; F41.9 Anxiety disorder, unspecified; F32.A Depression, unspecified; F17.210 Nicotine dependence, cigarettes, uncomplicated; Z85.3 Personal history of malignant neoplasm of breast; Z90.710 Acquired absence of both cervix and uterus
CPT/HCPCS: 70450; 99284; A9270